=== PATIENT | male | born 1985 | race American Indian/Alaskan Native ===

== ENCOUNTER 2019-07-23 01:43 | Emergency (ER) | payer SELFPAY ==
[2019-07-23 02:59] VITALS: BP 154/98
--- NOTE | 2019-07-23 06:38 | Emergency Department Report ---
HPI - General Chief Complaint: Extremity Injury, Lower PUI?: No Time Seen by Provider: 07/23/19 06:26 - HPI HPI: Room 2 The patient is a 33-year-old male present with a chief complaint of left ankle pain. Patient states he injured his ankle in high school but does not recall the specific injury. Patient states he is chronic pain since. Patient admits to seeing a physician but does not recall a specific diagnosis. The patient states for the past months the ankle has been hurting him again at the lateral malleoli. Patient denies any recent trauma. Patient denies history of fever ED Past Medical Hx - Past Medical History Previous Medical History?: Yes Hx Psychiatric Treatment: Yes (Schizoaffective disorder) Additional medical history: Chronic left ankle pain since high school - Surgical History Hx Appendectomy: Yes Additional Surgical History: Right knee - Family History Family history: no significant - Social History Smoking Status: Never Smoker Substance Use Type: Marijuana - Medications Home Medications: Home Medications Medication Instructions Recorded Confirmed Last Taken Type Ibuprofen [Motrin 800 MG tab] 800 mg PO Q8HR PRN #20 tablet 07/23/19 Unknown Rx traMADoL [Ultram] 50 mg PO Q6HR PRN #10 tablet 07/23/19 Unknown Rx ED Review of Systems ROS: Stated complaint: LEFT ANKLE PAIN Other details as noted in HPI Constitutional: denies: fever Respiratory: no symptoms reported Endocrine: no symptoms reported Musculoskeletal: arthralgia Physical Exam - Physical Exam Vital Signs: Vital Signs 07/23/19 02:36 Temperature 99.0 F Pulse Rate 91 H Respiratory 18 Rate Blood Pressure 154/98 O2 Sat by Pulse 97 Oximetry Physical Exam: GENERAL: The patient is well-developed well-nourished male sitting in chair not appearing to be in acute distress. [] HEENT: Normocephalic. Atraumatic. Extraocular motions are intact. Patient has moist mucous membranes. NECK: Supple. Trachea midline CHEST/LUNGS: There is no respiratory distress noted. HEART/CARDIOVASCULAR: Regular. There is no tachycardia. SKIN: There is no rash. There is no edema. There is no diaphoresis. NEURO: The patient is awake, alert, and oriented. The patient is cooperative. The patient has normal speech MUSCULOSKELETAL: There is tenderness to palpation of the left lateral malleolus ED Course Vital Signs 07/23/19 02:36 Temperature 99.0 F Pulse Rate 91 H Respiratory 18 Rate Blood Pressure 154/98 O2 Sat by Pulse 97 Oximetry ED Medical Decision Making - Radiology Data Radiology results: report reviewed (Left ankle x-ray), image reviewed (Left ankle x-ray) interpreted by me: Left ankle x-ray-no acute fracture. No osseous abnormality seen [facility] [address] [place] [address] XRay Report Signed Patient: ANJALI DALY MR#: [id number] : 1985 Acct:[id number] Age/Sex: 33 / M ADM Date: 07/23/19 Loc: ED Attending Dr: Ordering Physician: KRAYN HANSON MD Date of Service: 07/23/19 Procedure(s): XR ankle 3+V LT Accession Number(s): [id number] cc: KARYN HANSON MD Fluoro Time In Minutes: LEFT ANKLE 3 VIEWS INDICATION / CLINICAL INFORMATION: Pain at lateral malleolus COMPARISON: None available. FINDINGS: BONES and JOINT(S): No acute fracture or subluxation. No significant arthritis. SOFT TISSUES: There is mild generalized edema, most notable laterally. ADDITIONAL FINDINGS: None. IMPRESSION: Mild left ankle edema without an acute osseous abnormality. Signer Name: Kaushik Puga MD Signed: 07/23/2019 7:16 AM Workstation Name: [id number] Transcribed By: GEO Dictated By: Kaushik Puga MD Electronically Authenticated By: Kaushik Puga MD Signed Date/Time: 07/23/19715 DD/ 4 TD/TT: - Differential Diagnosis Arthritis, chronic ankle pain Critical care attestation.: If time is entered above; I have spent that time in minutes in the direct care of this critically ill patient, excluding procedure time. ED Disposition Clinical Impression: Chronic pain of left ankle Disposition: DC-01 TO HOME OR SELFCARE Is pt being admited?: No Does the pt Need Aspirin: No Condition: Stable Instructions: Arthralgia (ED) Additional Instructions: Return to the emergency department should you develop worsening symptoms, inabi lity to tolerate food or liquids, high fever or any other concerns Prescriptions: Ibuprofen [Motrin 800 MG tab] 800 mg PO Q8HR PRN #20 tablet PRN Reason: Pain, Moderate (4-6) traMADoL [Ultram] 50 mg PO Q6HR PRN #10 tablet PRN Reason: Pain Referrals: PAULIE CEBALLOS MD [Staff Physician] - 3-5 Days (Dr. Ceballos is an orthopedic surgeon. Please follow-up with him for further evaluation of your ankle pain) Time of Disposition: 07:35
== END 2019-07-23 08:09 | disposition home or self-care (01) ==
LOC: ED 01:43
DX: M25.572 Pain in left ankle and joints of left foot (principal); G89.29 Other chronic pain; F12.10 Cannabis abuse, uncomplicated; F20.9 Schizophrenia, unspecified

== ENCOUNTER 2019-07-23 18:13 | Emergency (ER) | payer SELFPAY ==
--- NOTE | 2019-07-23 18:22 | Emergency Department Report ---
Chief Complaint: Extremity Injury, Lower Stated Complaint: FOOT PAIN - HPI History of Present Illness: 33-year-old -[place] male presents to the emergency room for chronic ankle pain that he has had since high school. Patient was recently seen here within the last hour by Dr. Nelson board-certified emergency medical provider and had x-rays that shows no acute abnormalities. Patient was interviewed by this provider with security. I discussed with patient that he has been seen the re commendations to take ibuprofen and to follow-up with a orthopedic provider or primary care provider. - Exam Physical Exam: Gen: alert oriented NAD nontoxic in appearance Patient is ambulatory without difficulties has a left ankle brace. MSE screening note: Focused history and physical exam performed. Due to findings the following was ordered: 33-year-old -[place] male presents to the emergency room for chronic ankle pain that he has had since high school. Patient was recently seen here within the last hour by Dr. Nelson board-certified emergency medical provider and had x-rays that shows no acute abnormalities. Patient was interviewed by this provider with security. I discussed with patient that he has been seen the recommendations to take ibuprofen and to follow-up with a orthopedic provider or primary care provider. Patient was escorted out by security ED Disposition for MSE Condition: Stable
== END 2019-07-24 07:00 | disposition home or self-care (01) ==
LOC: ED 18:13
DX: M79.671 Pain in right foot (principal); Z53.21 Procedure and treatment not carried out due to patient leaving prior to being seen by health care provider